=== PATIENT | male | born 1940 ===

== ENCOUNTER 2020-08-25 13:33 | Inpatient (IN) | payer OTHER, MEDICAID ==
[~2020-08-25] VITALS: Ht 170.2 cm; Wt 86.0 kg
[2020-08-25] MEDS: PIPERACILLIN SODIUM/TAZOBACTAM 2.25 GM in DEXTROSE 5%-WATER 50 ML IV SCH (01:25)
[2020-08-25] MEDS: SODIUM CHLORIDE 0.9% 1,000 ML IV SCH (01:30)
[2020-08-25] MEDS: FAMOTIDINE 10 MG/ML 2 ML VIAL IVP SCH (01:30)
[2020-08-25 14:14] LABS: BASOPHILS % (AUTO) 0.7 % (0.0-2.0); EOSINOPHILS % (AUTO) 0.5 % (1.0-6.0); HEMATOCRIT 38.3 % (41-53); HEMOGLOBIN 12.7 g/dL (13.5-17.5); LYMPHOCYTES # (AUTO) 0.6 K/uL (1.0-4.8); MEAN CORPUSCULAR HGB CONC 33.1 G/dL (31.0-37.0); MEAN CORPUSCULAR VOLUME 97 fL (80-100); MONOCYTES # (AUTO) 0.7 K/uL (0.1-1.0); MONOCYTES % (AUTO) 7.7 % (2.0-9.0); NEUTROPHILS # (AUTO) 7.9 K/uL (1.8-7.7); NEUTROPHILS % (AUTO) 85.1 % (40.0-70.0); PLATELET COUNT (AUTO) 181 K/uL (150-450); RED BLOOD CELL COUNT(AUTO) 3.96 MIL/uL (4.50-5.90); RED CELL DISTRIBUTION WIDTH 15.1 % (11.5-14.5)
[2020-08-25] MEDS ORDERED: FERR-82 PO (14:20)
[2020-08-25] MEDS ORDERED: BUME1TAB34 PO ×2 (14:20)
[2020-08-25] MEDS ORDERED: TEST200V27 IM (14:20)
[2020-08-25] MEDS ORDERED: CARV6 PO (14:20)
[2020-08-25] MEDS ORDERED: LOSA-382 PO ×2 (14:20)
[2020-08-25] MEDS ORDERED: OMEP-99 PO (14:20)
[2020-08-25] MEDS ORDERED: BUTE12CR TP (14:20)
[2020-08-25] MEDS ORDERED: ATOR40TA28 PO (14:20)
[2020-08-25] MEDS ORDERED: AMLO-258 PO (14:20)
[2020-08-25] MEDS ORDERED: INSLAN SQ (14:20)
[2020-08-25] MEDS ORDERED: METR500 PO (14:20)
[2020-08-25] MEDS ORDERED: ASPI-1444 PO (14:25)
[2020-08-25] MEDS ORDERED: CLOT15CR23 TP (14:25)
[2020-08-25] MEDS ORDERED: ERGO500054 PO (14:25)
[2020-08-25 14:28] LABS: ANION GAP 14 mmol/L (8-16); CALCIUM, TOTAL 8.9 mg/dL (8.8-10.5); CARBON DIOXIDE 24 mmol/L (22-29); CHLORIDE 101 mmol/L (98-107); CREATININE 2.05 mg/dL (0.60-1.30); GLOMERULAR FILTR. RATE CALC 31 mL/min (>60); GLUCOSE,RANDOM 177 mg/dL (70-110); POTASSIUM 4.3 mmol/L (3.5-5.1); SODIUM SERUM 139 mmol/L (136-145); UREA NITROGEN, BLOOD 37 mg/dL (7-18)
[2020-08-25] MEDS ORDERED: LORazepam 2 MG/ML VIAL IVP ONE ×3 (14:30→16:30)
[2020-08-25 14:35] LABS: TROPONIN I 0.04 ng/mL (0.00-0.05)
[2020-08-25 14:36] LABS: ALANINE AMINOTRANSFERASE 34 U/L (12-78); ALBUMIN 3.6 g/dL (3.4-5.0); ALKALINE PHOSPHATASE 93 U/L (46-116); ASPARTATE AMINOTRANSFERASE 20 U/L (15-37); BILIRUBIN,TOTAL 0.7 mg/dL (0.1-1.0); TOTAL PROTEIN, SERUM 7.5 g/dL (6.4-8.2)
[2020-08-25 14:38] LABS: B-TYPE NATRIURETIC PEPTIDE 790 pg/mL (0-100)
[2020-08-25 14:51] LABS: SALICYLATE < 0.2 mg/dL (2.8-20.0)
[2020-08-25 15:02] LABS: ACETAMINOPHEN < 2 mcg/mL (10-30)
[2020-08-25 15:54] LABS: COVID AG,FIA SOURCE NASOPHARYNGEAL
[2020-08-25 16:05] LABS: APPEARANCE,URINE CLOUDY (CLEAR); BILIRUBIN,URINE NEGATIVE (NEGATIVE); GLUCOSE, URINE (UA) NEGATIVE (NEGATIVE); KETONES,URINE TRACE mg/dL (NEGATIVE); NITRATE,URINE POSITIVE (NEGATIVE); PH,URINE 5.5 (5.0-8.0); PROTEIN,URINE SEE CONFIRM (NEGATIVE); UROBILINOGEN,URINE 0.2 mg/dL (<=1.0)
[2020-08-25 16:11] LABS: LEUKOCYTE ESTERASE ,URINE SMALL (NEGATIVE); OCCULT BLOOD,URINE SMALL (NEGATIVE)
[2020-08-25 16:13] LABS: BACTERIA,URINE Many /HPF (None Seen); SULFOSALICYLIC ACID,URINE 3+ (Negative)
[2020-08-25 16:14] LABS: AMPHET/METH SCREEN,URINE NEGATIVE (NEGATIVE); BARBITURATE SCREEN, URINE NEGATIVE (NEGATIVE); BENZODIAZEPINES SCREEN,URINE NEGATIVE (NEGATIVE); CANNABINOID SCREEN,URINE NEGATIVE (NEGATIVE); COCAINE SCREEN,URINE NEGATIVE (NEGATIVE); METHADONE SCREEN, URINE NEGATIVE (NEGATIVE); OPIATE SCREEN,URINE NEGATIVE (NEGATIVE); PHENCYCLIDINE SCREEN,URINE NEGATIVE (NEGATIVE)
[2020-08-25] MEDS ORDERED: SODIUM CHLORIDE 0.9% 500 ML IV ONE ×2 (16:26→16:30)
[2020-08-25] MEDS ORDERED: DILTIAZEM HCL 5 MG/ML 5 ML VIAL IVP ONE ×2 (18:00→20:00)
[2020-08-25] MEDS ORDERED: HydrALAZINE HCL 20 MG/ML VIAL IVP ONE (18:15)
[2020-08-25] MEDS ORDERED: ASPIRIN 600 MG RECTAL SUPPOSITORY PR ONE (18:15)
[2020-08-25] MEDS ORDERED: VANCOMYCIN HCL 1 GM/D5% WATER 200 ML IV ONE (18:45)
[2020-08-25] MEDS ORDERED: MORPHINE SULFATE 4 MG/ML SYRINGE IVP ONE (19:00)
[2020-08-25] MEDS: DILTIAZEM HCL 125 MG in DEXTROSE 5%-WATER 100 ML IV PRN ×2 (19:27→20:00)
[2020-08-25] MEDS ORDERED: DILTIAZEM HCL 125 MG in DEXTROSE 5%-WATER 100 ML IV PRN (20:00)
[2020-08-25] MEDS ORDERED: ACETAMINOPHEN 325 MG TABLET PO PRN (20:00)
[2020-08-25] MEDS ORDERED: ONDANSETRON HCL 4 MG/2 ML VIAL IVP PRN (20:00)
[2020-08-25] MEDS ORDERED: CefTRIAXone 1 GM/DEXTROSE 50 ML IV SCH (20:00)
[2020-08-25] MEDS ORDERED: ACETAMINOPHEN 650 MG/ISO-OSM 65 ML IV ONE (20:15)
[2020-08-25] MEDS ORDERED: PROPOFOL 1000 MG/ISO-OSM 100 ML IV ONE (20:33)
[2020-08-25] MEDS ORDERED: ETOMIDATE 2 MG/ML 10 ML VIAL ONE (20:33)
[2020-08-25] MEDS ORDERED: SUCCINYLCHOLINE CHLORIDE 20 MG/ML 10 ML VIAL ONE (20:33)
[2020-08-25] MEDS ORDERED: GADOTERATE MEGLUMINE 10 MMOL/20 ML VIAL IVP ONE (20:49)
[2020-08-25 20:53] LABS: INR 1.2 (0.9-1.1); PROTHROMBIN TIME 12.5 SEC (9.4-11.6)
[2020-08-25] MEDS: PROPOFOL 1000 MG/ISO-OSM 100 ML IV PRN ×2 (21:15→21:53)
[2020-08-25] MEDS ORDERED: FentaNYL CIT 1000MCG/D5%-WATER 100 ML IV PRN (21:30)
[2020-08-25] MEDS ORDERED: PROPOFOL 1000 MG/ISO-OSM 100 ML IV PRN (21:30)
[2020-08-25 21:34] LABS: ABG A-A DIFF O2 467.6 mmHg (10-20.0); ABG BASE EXCESS -3.3 mmol/L (-2.0-3.0); ABG CARBOXYHEMOGLOBIN 0.7 % (0.0-1.5); ABG HCO3 21.6 mmol/L (22.0-26.0); ABG METHEMOGLOBIN 0.3 % (0.0-1.5); ABG OXYGEN CONTENT 19.9 mL/dL (15.0-23.0); ABG OXYGEN SATURATION 99.1 % (95.0-98.0); ABG OXYHEMOGLOBIN 98.1 % (94.0-100.0); ABG PCO2 49 mmHg (35-45); ABG PH 7.291 (7.35-7.450); ABG TOTAL HEMOGLOBIN 14.2 G/dL (12.0-18.0); PO2, ARTERIAL BG 192.5 mmHg (71.0-79.0); SOURCE, BLOOD GAS ARTERIAL
[2020-08-25 21:35] LABS: O2 DEVICE,BLOOD GAS VENTILATOR (ROOM AIR); PEEP,BG 5 cm H2O; SITE, BLOOD GAS RT BRACHIAL; VT, ABG 450 ml
[2020-08-25] MEDS ORDERED: ETOMIDATE 2 MG/ML 10 ML VIAL IVP ONE (21:45)
[2020-08-25] MEDS ORDERED: SUCCINYLCHOLINE CHLORIDE 20 MG/ML 10 ML VIAL IVP ONE (21:45)
[2020-08-25] MEDS ORDERED: SODIUM CHLORIDE 0.9% 1,000 ML IV ONE (22:15)
[2020-08-25] MEDS ORDERED: MIDAZOLAM HCL 100 MG in SODIUM CHLORIDE 0.9% 180 ML IV PRN (22:15)
[2020-08-25] MEDS: FentaNYL CIT 1000MCG/D5%-WATER 100 ML IV PRN (22:45)
[2020-08-25] MEDS ORDERED: DEXTROSE 50%-WATER 25 GM/50 ML SYRINGE IVP PRN (22:45)
[2020-08-25] MEDS ORDERED: INSULIN LISPRO 100 UNITS/ML SQ PRN (22:45)
[2020-08-25] MEDS ORDERED: NOREPINEPHRINE 4 MG/D5%-WATER 250 ML IV PRN (22:45)
[2020-08-26] VITALS (9 sets, daily range): BP systolic 108–122; BP diastolic 60–78
[2020-08-26] MEDS: PROPOFOL 1000 MG/ISO-OSM 100 ML IV PRN ×4 (00:15→22:09)
[2020-08-26] MEDS: PIPERACILLIN SODIUM/TAZOBACTAM 2.25 GM in DEXTROSE 5%-WATER 50 ML IV SCH ×3 (01:25→16:23)
[2020-08-26] MEDS: FAMOTIDINE 10 MG/ML 2 ML VIAL IVP SCH ×2 (01:30→08:55)
[2020-08-26] MEDS: HEPARIN SODIUM,PORCINE 5,000 UNITS/ML VIAL SQ SCH ×3 (01:30→16:04)
[2020-08-26] MEDS: SODIUM CHLORIDE 0.9% 1,000 ML IV SCH ×3 (01:30→22:08)
[2020-08-26 05:06] LABS: BASOPHILS % (AUTO) 0.7 % (0.0-2.0); EOSINOPHILS % (AUTO) 0.1 % (1.0-6.0); HEMOGLOBIN 11.4 g/dL (13.5-17.5); LYMPHOCYTES # (AUTO) 0.7 K/uL (1.0-4.8); MEAN CORPUSCULAR HEMOGLOBIN 31.8 pg (26.0-34.0); MEAN CORPUSCULAR HGB CONC 32.5 G/dL (31.0-37.0); MEAN CORPUSCULAR VOLUME 98 fL (80-100); MONOCYTES # (AUTO) 1.1 K/uL (0.1-1.0); MONOCYTES % (AUTO) 9.5 % (2.0-9.0); NEUTROPHILS # (AUTO) 10.1 K/uL (1.8-7.7); NEUTROPHILS % (AUTO) 83.7 % (40.0-70.0); PLATELET COUNT (AUTO) 149 K/uL (150-450); RED BLOOD CELL COUNT(AUTO) 3.57 MIL/uL (4.50-5.90); RED CELL DISTRIBUTION WIDTH 15.3 % (11.5-14.5)
[2020-08-26 05:16] LABS: CALCIUM, TOTAL 8.3 mg/dL (8.8-10.5); CREATININE 1.94 mg/dL (0.60-1.30); MAGNESIUM 1.8 mg/dL (1.80-2.40)
[2020-08-26 07:20] LABS: GLUCOSE,POINT OF CARE 138 MG/DL (70-110)
[2020-08-26 07:56] LABS: ABG A-A DIFF O2 182.2 mmHg (10-20.0); ABG BASE EXCESS -0.1 mmol/L (-2.0-3.0); ABG CARBOXYHEMOGLOBIN 0.3 % (0.0-1.5); ABG HCO3 24.8 mmol/L (22.0-26.0); ABG METHEMOGLOBIN 0.2 % (0.0-1.5); ABG OXYGEN CONTENT 16.9 mL/dL (15.0-23.0); ABG OXYGEN SATURATION 99.3 % (95.0-98.0); ABG OXYHEMOGLOBIN 98.8 % (94.0-100.0); ABG PCO2 34 mmHg (35-45); ABG PH 7.461 (7.35-7.450); ABG TOTAL HEMOGLOBIN 11.7 G/dL (12.0-18.0); PO2, ARTERIAL BG 245.5 mmHg (71.0-79.0); SITE, BLOOD GAS RT BRACHIAL; SOURCE, BLOOD GAS ARTERIAL; TEMPERATURE, FAHRENHEIT, BG 97.1 FAHREN (96.0-98.6)
[2020-08-26 07:57] LABS: O2 DEVICE,BLOOD GAS VENTILATOR (ROOM AIR); PEEP,BG 5 cm H2O; SPONTANEOUS VT, BG 506 ml; VT, ABG 450 ml
[2020-08-26] MEDS: ASPIRIN 81 MG CHEWABLE TABLET GT SCH (08:56)
[2020-08-26] MEDS: CHLORHEXIDINE GLUCONATE 0.12% 15 ML UDCUP ORAL RINSE MM SCH ×2 (08:58→22:09)
[2020-08-26] MEDS ORDERED: SODIUM CHLORIDE 0.9% 1,000 ML IV ONE (11:45)
[2020-08-26 17:30] LABS: GLUCOSE,POINT OF CARE 118 MG/DL (70-110)
[2020-08-26] MEDS ORDERED: SUCCINYLCHOLINE CHLORIDE 20 MG/ML 10 ML VIAL IVP ONE (17:30)
[2020-08-26] MEDS ORDERED: ETOMIDATE 2 MG/ML 10 ML VIAL IVP ONE (17:30)
[2020-08-26] MEDS ORDERED: RAPID SEQUENCE KIT [RSI] 1 EACH KIT MISC ONE (17:30)
[2020-08-26] MEDS ORDERED: SUCCINYLCHOLINE CHLORIDE 20 MG/ML 10 ML VIAL ONE (17:31)
[2020-08-26] MEDS ORDERED: ACETAMINOPHEN 650 MG RECTAL SUPPOSITORY PR PRN (18:45)
[2020-08-26] MEDS ORDERED: ETOMIDATE 2 MG/ML 10 ML VIAL IV ONE (19:04)
[2020-08-26 19:34] LABS: GLUCOSE,POINT OF CARE 100 MG/DL (70-110)
[2020-08-26] MEDS: FentaNYL CIT 1000MCG/D5%-WATER 100 ML IV PRN (20:45)
[2020-08-27] VITALS: BP 100/52
[2020-08-27] MEDS: HEPARIN SODIUM,PORCINE 5,000 UNITS/ML VIAL SQ SCH ×3 (00:04→17:05)
[2020-08-27] MEDS: PIPERACILLIN SODIUM/TAZOBACTAM 2.25 GM in DEXTROSE 5%-WATER 50 ML IV SCH ×3 (00:06→17:05)
[2020-08-27 02:34] LABS: GLUCOSE,POINT OF CARE 72 MG/DL (70-110)
[2020-08-27] MEDS: PROPOFOL 1000 MG/ISO-OSM 100 ML IV PRN ×3 (02:59→15:07)
[2020-08-27 04:00] VITALS: BP 125/74
[2020-08-27 07:56] LABS: GLUCOSE,POINT OF CARE 94 MG/DL (70-110)
[2020-08-27 08:00] VITALS: BP 125/71
[2020-08-27] MEDS: FAMOTIDINE 10 MG/ML 2 ML VIAL IVP SCH (08:31)
[2020-08-27] MEDS: CHLORHEXIDINE GLUCONATE 0.12% 15 ML UDCUP ORAL RINSE MM SCH (08:31)
[2020-08-27] MEDS: ASPIRIN 81 MG CHEWABLE TABLET GT SCH (08:31)
[2020-08-27] MEDS ORDERED: APIXABAN 2.5 MG TABLET PO SCH (09:00)
[2020-08-27 11:17] LABS: BASOPHILS % (AUTO) 0.5 % (0.0-2.0); EOSINOPHILS % (AUTO) 1.2 % (1.0-6.0); HEMATOCRIT 40.9 % (41-53); LYMPHOCYTES # (AUTO) 0.6 K/uL (1.0-4.8); LYMPHOCYTES % (AUTO) 4.4 % (22.0-44.0); MEAN CORPUSCULAR HEMOGLOBIN 31.5 pg (26.0-34.0); MEAN CORPUSCULAR HGB CONC 31.8 G/dL (31.0-37.0); MEAN CORPUSCULAR VOLUME 99 fL (80-100); MONOCYTES # (AUTO) 1.6 K/uL (0.1-1.0); MONOCYTES % (AUTO) 11.8 % (2.0-9.0); NEUTROPHILS % (AUTO) 82.1 % (40.0-70.0); PLATELET COUNT (AUTO) 133 K/uL (150-450); RED BLOOD CELL COUNT(AUTO) 4.14 MIL/uL (4.50-5.90); RED CELL DISTRIBUTION WIDTH 15.8 % (11.5-14.5)
[2020-08-27 11:20] LABS: CALCIUM, TOTAL 8.3 mg/dL (8.8-10.5); CREATININE 1.86 mg/dL (0.60-1.30); POTASSIUM 4.4 mmol/L (3.5-5.1)
[2020-08-27] MEDS: SODIUM CHLORIDE 0.9% 1,000 ML IV SCH (11:39)
[2020-08-27 12:00] VITALS: BP 110/57
[2020-08-27 12:03] LABS: GLUCOSE,POINT OF CARE 90 MG/DL (70-110)
[2020-08-27] MEDS: FentaNYL CIT 1000MCG/D5%-WATER 100 ML IV PRN (12:31)
[2020-08-27 16:00] VITALS: BP 104/61
[2020-08-27 19:11] LABS: GLUCOSE,POINT OF CARE 95 MG/DL (70-110)
== END 2020-08-27 19:05 | disposition short-term general hospital (02) | DRG 871 ==
LOC: EMS 13:39 → AHU 19:49 → ICU 08-26 20:00
PROVIDERS: ADMIT Internal Medicine; ATTEND Internal Medicine
PROC: 5A1945Z Respiratory Ventilation, 24-96 Consecutive Hours (ICD-10-PCS; principal; 2020-08-26)
PROC: 0BH17EZ Insertion of Endotracheal Airway into Trachea, Via Natural or Artificial Opening (ICD-10-PCS; 2020-08-26)
DX: A41.9 Sepsis, unspecified organism (principal); G92 Toxic encephalopathy; J69.0 Pneumonitis due to inhalation of food and vomit; J96.01 Acute respiratory failure with hypoxia; N39.0 Urinary tract infection, site not specified; N17.9 Acute kidney failure, unspecified; I48.20 Chronic atrial fibrillation, unspecified; I13.0 Hypertensive heart and chronic kidney disease with heart failure and stage 1 through stage 4 chronic kidney disease, or unspecified chronic kidney disease; Z99.11 Dependence on respirator [ventilator] status; E11.22 Type 2 diabetes mellitus with diabetic chronic kidney disease; I50.9 Heart failure, unspecified; E78.5 Hyperlipidemia, unspecified; N18.30 Chronic kidney disease, stage 3 unspecified; E78.00 Pure hypercholesterolemia, unspecified; Z86.73 Personal history of transient ischemic attack (TIA), and cerebral infarction without residual deficits; Z79.01 Long term (current) use of anticoagulants; Z78.1 Physical restraint status; Z20.822 Contact with and (suspected) exposure to COVID-19
CPT/HCPCS: 36600; 51702; 70450; 70544; 70553; 71045; 76770; 80048; 80053; 81001; 81002; 82140; 82805; 82962; 83605; 83735; 83880; 84484; 85025; 85610; 85730; 87040; 87077; 87081; 87086; 87147; 87186; 93005; 93306; 93880; 93970; 94002; 94003; 99291; G0378; G0480; G0481; J0131; J0330; J0360; J1644; J2060; J2270; J2543; J2704; J3370; J3490; J7030; J7040; J7060; Q9967; 36415-L1; 36415-TC; U0003